=== PATIENT | female | born 2005 | race Caucasian/White ===

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

== ENCOUNTER → 2023-10-19 08:09 | Outpatient (BNVA) | payer MEDICAID, SELFPAY | PROVIDERS: PCP Family Medicine; Visit Provider Nurse Practitioner Women's Health | DX: Z34.90 Encounter for supervision of normal pregnancy, unspecified, unspecified trimester (principal) | CPT/HCPCS: 81025; 84702; 86850; 86900 ==

== ENCOUNTER → 2023-11-11 08:02 | Outpatient (BNVA) | payer MEDICAID, SELFPAY | PROVIDERS: PCP Family Medicine; Visit Provider Nurse Practitioner Women's Health | DX: Z34.90 Encounter for supervision of normal pregnancy, unspecified, unspecified trimester | CPT/HCPCS: 80307; 84315; 84439; 84443; 84481; 85025; 86592; 86762; 86803; 86850; 86900; 87086; 87340; 87806 ==

== ENCOUNTER → 2023-11-15 08:13 | Outpatient (BNVA) | payer MEDICAID, SELFPAY | PROVIDERS: PCP Family Medicine; Visit Provider Obstetrics & Gynecology | DX: Z34.90 Encounter for supervision of normal pregnancy, unspecified, unspecified trimester (principal) | CPT/HCPCS: 84315; 87491; 87591 ==

== ENCOUNTER → 2023-12-14 12:09 | Outpatient (BNVA) | payer MEDICAID, SELFPAY | PROVIDERS: PCP Family Medicine; Visit Provider Nurse Practitioner Women's Health | DX: N39.0 Urinary tract infection, site not specified (principal); Z3A.12 12 weeks gestation of pregnancy | CPT/HCPCS: 82105; 84315; 85025; 87086 ==

== ENCOUNTER → 2024-01-06 14:30 | Outpatient (BNVA) | payer MEDICAID, SELFPAY | PROVIDERS: PCP Family Medicine; Visit Provider Obstetrics & Gynecology | DX: Z36.2 Encounter for other antenatal screening follow-up (principal); Z3A.19 19 weeks gestation of pregnancy | CPT/HCPCS: 76805 ==

== ENCOUNTER → 2024-01-12 08:17 | Outpatient (BNVA) | payer MEDICAID, SELFPAY | PROVIDERS: PCP Family Medicine; Visit Provider Obstetrics & Gynecology | DX: Z53.9 Procedure and treatment not carried out, unspecified reason (principal) | CPT/HCPCS: 84315 ==

== ENCOUNTER → 2024-02-08 12:59 | Outpatient (BNVA) | payer MEDICAID, SELFPAY | PROVIDERS: PCP Family Medicine; Visit Provider Nurse Practitioner Women's Health | DX: Z36.2 Encounter for other antenatal screening follow-up (principal); Z34.90 Encounter for supervision of normal pregnancy, unspecified, unspecified trimester; Z3A.24 24 weeks gestation of pregnancy | CPT/HCPCS: 76816; 81000; 84315 ==

== ENCOUNTER → 2024-02-09 16:24 | Outpatient (BNVA) | payer MEDICAID, SELFPAY | PROVIDERS: PCP Family Medicine; Visit Provider Nurse Practitioner Women's Health | DX: N28.9 Disorder of kidney and ureter, unspecified (principal); Z3A.12 12 weeks gestation of pregnancy | CPT/HCPCS: 80053 ==

== ENCOUNTER 2024-02-11 16:48 | Outpatient (CLI) | payer OTHER, MEDICAID, SELFPAY ==
[2024-02-11 17:49] LABS: Urine Total Protein 17.4 mg/dL (0-150)
[2024-02-11 18:11] LABS: Total Volume, Urine 1000 mL
== END 2024-02-11 16:49 | disposition home or self-care (01) ==
LOC: LAB 16:55
PROVIDERS: PCP Family Medicine; Visit Provider Nurse Practitioner Women's Health
DX: N28.9 Disorder of kidney and ureter, unspecified (principal); Z3A.12 12 weeks gestation of pregnancy
CPT/HCPCS: 84156

== ENCOUNTER 2024-02-21 21:14 | Outpatient (CLI) | payer OTHER, MEDICAID, SELFPAY ==
[2024-02-21 21:14] VITALS: BMI 32.8
[2024-02-21 21:34] VITALS: TEMP 36.9
[2024-02-21 21:40] VITALS: BP 101/62; PULSE 96
[2024-02-21 21:54] VITALS: BP 104/59; PULSE 86
[2024-02-21 22:05] VITALS: BP 104/59; PULSE 86; RESP 16; TEMP 36.9
== END 2024-02-21 22:05 | disposition home or self-care (01) ==
LOC: OPOB 21:19 → OBGYN 21:19
PROVIDERS: PCP Family Medicine; Visit Provider Obstetrics & Gynecology
DX: O26.899 Other specified pregnancy related conditions, unspecified trimester (principal); Z3A.00 Weeks of gestation of pregnancy not specified
CPT/HCPCS: 99211

== ENCOUNTER → 2024-03-28 09:58 | Outpatient (BNVA) | payer OTHER, MEDICAID, SELFPAY | PROVIDERS: PCP Family Medicine; Visit Provider Obstetrics & Gynecology | DX: Z34.90 Encounter for supervision of normal pregnancy, unspecified, unspecified trimester (principal) | CPT/HCPCS: 82950; 84315; 87086 ==

== ENCOUNTER → 2024-04-13 13:53 | Outpatient (BNVA) | payer OTHER, MEDICAID, SELFPAY | PROVIDERS: PCP Family Medicine; Visit Provider Nurse Practitioner Women's Health | DX: Z34.90 Encounter for supervision of normal pregnancy, unspecified, unspecified trimester (principal) | CPT/HCPCS: 84315; 85025 ==

== ENCOUNTER → 2024-05-01 13:47 | Outpatient (BNVA) | payer SELFPAY | PROVIDERS: PCP Family Medicine; Visit Provider Obstetrics & Gynecology | DX: Z34.80 Encounter for supervision of other normal pregnancy, unspecified trimester (principal) | CPT/HCPCS: 81000; 87081 ==

== ENCOUNTER → 2024-05-09 15:02 | Outpatient (BNVA) | payer SELFPAY | PROVIDERS: PCP Family Medicine; Visit Provider Obstetrics & Gynecology | DX: Z34.80 Encounter for supervision of other normal pregnancy, unspecified trimester (principal) | CPT/HCPCS: 84315 ==

== ENCOUNTER 2024-05-12 20:18 | Outpatient (CLI) | payer SELFPAY ==
[2024-05-12 20:20] VITALS: BMI 34.8
[2024-05-12 20:27] VITALS: BP 127/80; PULSE 131
[2024-05-12 20:42] VITALS: BP 120/75; PULSE 117
[2024-05-12 20:57] VITALS: BP 121/76; PULSE 123
[2024-05-12 21:12] VITALS: BP 113/71; PULSE 117
[2024-05-12 21:27] VITALS: BP 109/69; PULSE 123
[2024-05-12 21:42] VITALS: BP 108/65; PULSE 121
== END 2024-05-12 22:00 | disposition home or self-care (01) ==
LOC: OPOB 20:19 → OBGYN 20:20
PROVIDERS: PCP Family Medicine; Visit Provider Obstetrics & Gynecology
DX: O26.899 Other specified pregnancy related conditions, unspecified trimester (principal); Z3A.00 Weeks of gestation of pregnancy not specified; R10.9 Unspecified abdominal pain; R50.9 Fever, unspecified
CPT/HCPCS: 59025; 99211

== ENCOUNTER → 2024-05-16 15:40 | Outpatient (BNVA) | payer SELFPAY | PROVIDERS: PCP Family Medicine; Visit Provider Obstetrics & Gynecology | DX: Z3A.12 12 weeks gestation of pregnancy (principal) | CPT/HCPCS: 81000 ==

== ENCOUNTER → 2024-05-23 13:03 | Outpatient (BNVA) | payer SELFPAY | PROVIDERS: PCP Family Medicine; Visit Provider Obstetrics & Gynecology | DX: Z34.83 Encounter for supervision of other normal pregnancy, third trimester (principal) | CPT/HCPCS: 84315 ==

== ENCOUNTER 2024-05-29 07:21 | Inpatient (IN) | payer MEDICAID, SELFPAY ==
[2024-05-29] VITALS (37 sets, daily range): BP systolic 104–185; BP diastolic 56–95; PULSE 66–148; RESP 17; TEMP 35.9–37.1; O2SAT 97–100; BMI 36.8
[2024-05-29 07:57] LABS: Basophils % 0.4 %; Eosinophils # 0.6 10^3/uL (0.0-0.8); Hematocrit 32.8 % (36-47); Lymphocytes # 2.1 10^3/uL (1.5-6.5); Lymphocytes % 21.5 %; Mean Corpuscular HGB Conc 33.8 g/dL (30-55); Mean Corpuscular Hemoglobin 30.8 pg (27-33); Mean Corpuscular Volume 91.1 fl (85-98); Mean Platelet Volume 11.1 fL (7.4-10.4); Monocytes # 0.8 10^3/uL (0.2-0.9); Monocytes % 7.9 %; Neutrophils # 6.23 10^3/uL (1.8-8.0); Neutrophils % 63.9 %; Nucleated Red Blood Cells % 0 %; Platelet Count 192 10^3/cmm (157-399); Red Cell Distribution Width 12.9 % (12.1-15.1); White Blood Count 9.74 10^3/uL (4.5-13.0)
--- NOTE | 2024-05-29 11:05 | P.HP_ITS ---
Providers/Chief Complaint 2 Admitting Physician: Teo Harris MD Primary EXTRUSION LINE OPERATOR: Teo Harris MD Primary Care Provider: Emily Arias MD Chief Complaint: IOL HPI EXTRUSION LINE OPERATOR History of Present Illness Enedelia Pelaez is a 18 year old female EDC May 23, 2024 At 40 w 6 d No complications Admitted for induction of labor No c/o + movements POBHx: x two Present Details : 3 Para: 2 Labs Rubella: Immune RPR: Negative GBS: Negative Medications/Allergies Home Medications Medication Instructions Recorded Confirmed Last Taken Type PNV 153-FA 400 mcg-om3 35 mg-dha 1 tab PO DAILY 06/08/22 05/23/24 02/21/24 History 25 mg-epa 5 mg-fish oil chew tablet ( Gummies) Allergies Allergy/AdvReac Type Severity Reaction Status Date / Time No Known Allergies Allergy Verified 05/23/24 11:22 PFSH EXTRUSION LINE OPERATOR 2 PFSH: Medical History Recurrent UTI No pertinent past medical history neghx: htn,dm,thyroid,dvt/pe PCP: Chanel Arias Surgical History No pertinent past surgical history Family History Unknown Adopted FAMILY HISTORY UNKNOWN Social History Smoking and tobacco/nicotine status: former use of tobacco/nicotine History History History 2 3 Term 2 0 Miscarriages/Ectopic 0 Living Children 2 Care DANIEL Calculator 2 Estimated Delivery Date Method Current WG Current Estimate 05/23/24 LMP (Certain) 40w 6d Other Estimates 05/25/24 Ultrasound #1 40w 4d Expected Delivery Route/Plan Hx of x2 without complications Specific Issues/Plans * KIDNEY DISEASE * RECURRENT UTIS: taking daily macrobid * UTI IN : Nitrates + every OB visit, taking daily macrobid * IRON DEFICIENCY ANEMIA * DEPRESSION * SHORT INTERVAL Vitals/I&O/Wt Last Vital Signs Temp 96.6 F L 05/29/24 13:44 Pulse 83 05/29/24 16:24 Resp 17 05/29/24 08:00 BP 106/63 05/29/24 16:24 O2 Del Method Room Air 05/29/24 08:00 Weight last 48 hrs Weight 235 lb Physical Exam 2 Narrative: Weight 230 lbs; 5?3? VS normal General comfortable Lungs: clear Cor: RRR FH 38 cm; cephalic Cervix: 2 cm / -3 Ext: no edema External monitor: heart tracing good variability, + accelerations Data 05/29/24 07:40 Results Labs OB ([facility]): 2 Obstetrics US 02/08/24 Blood Type O Positive 05/29/24 Antibody Screen Negative 05/29/24 Hct 32.8 % (36-47) L 05/29/24 Hgb 11.10 g/dL (12.4-14.8) L 05/29/24 Rho(D) Type Rh positive 05/29/24 Plt Count 192 10^3/cmm (157-399) 05/29/24 Hep Bs Antigen Non-reactive (Nonreactive) 11/11/23 Hepatitis C Antibody Non-reactive (Nonreactive) 11/11/23 Rubella IgG Antibody 63.1 IU/mL (0.0-10.0) H 11/11/23 RPR Nonreactive (Nonreactive) 11/11/23 HIV 1&2 Ab & HIV 1 Ag Non-reactive (Non-Reactiv) 11/11/23 TSH 0.47 uIU/mL (0.27-4.20) 11/11/23 Free T4 1.10 ng/dL (0.82-1.77) 11/11/23 C.trachomatis RNA (TMA) Not detected (NOT DETECTED) N.gonorrhoeae RNA (TMA) Not detected (NOT DETECTED) T. vaginalis Amp RNA Not detected (NOT DETECTED) 11/15/23 Chlamydia/GC Comment See note 11/15/23 Cystic Fibrosis Screen Negative 11/11/23 Glucose 1 Hr 50 gm 105 mg/dL (85-140) 03/28/24 Ser , Semi-Qnt 15790.00 mIU/mL 10/19/23 HCG, Qual Positive (Negative) H 10/19/23 Urine Opiates Screen Negative ng/mL (Negative) 11/11/23 Ur Barbiturates Screen Negative ng/mL (Negative) 11/11/23 Ur Phencyclidine Scrn Negative ng/mL (Negative) 11/11/23 Ur Amphetamines Screen Negative ng/mL (Negative) 11/11/23 U Benzodiazepines Scrn Negative ng/mL (Negative) 11/11/23 Urine Cocaine Screen Negative ng/mL (Negative) 11/11/23 U Marijuana (THC) Screen Negative ng/mL (Negative) 11/11/23 Micro Urine Specimen 03/28/24 A&P Assessment and plan (1) Encounter for induction of labor: 40 w 6 d Admit for induction of labor GBS negative Plan Cytotec 25 ug intravaginal h/o x two Attestations 2 Medical Necessity Statement*: patient at 40 w 6 d, admitted for induction of labor Coding Level of Care Code Acute Code for Chg Fwd Diagnoses Encounter for induction of labor Z34.90 Time Spent (min) 60
[2024-05-29] MEDS: miSOPROStol 100 mcg tablet 25 MCG VAGINAL (12:00)
[2024-05-29] MEDS: lactated ringers 1,000 ML 999 ML (17:54)
[2024-05-29] MEDS: ROPivacaine syringe 100 MG/50 ML SYRINGE 10 MG EPIDURAL ×2 (18:59→23:34)
[2024-05-29] MEDS: dextrose 5%-lactated ringers 1,000 ML 125 ML IV (19:04)
--- NOTE | 2024-05-29 19:07 | P.ANESASSM_ITS ---
Pre-Anesthetic Assessment Height/Weight: Height 1.7 m Weight 106.594 kg Temp Pulse Resp BP Pulse Ox O2 Del Method 96.6 F L 76 17 153/74 99 Room Air 05/29/24 13:44 05/29/24 19:03 05/29/24 08:00 05/29/24 19:03 05/29/24 18:59 05/29/24 08:00 Epidural Familial anesthetic complications: Epidural didn't work last time Social No alcohol and No tobacco Exam alert, oriented x 3, clear to auscultation bilaterally and regular rate & rhythm Metabolic Morbid Obesity Anesthetic Plan ASA status: 2 Anesthesia: Regional (specify below) Risk of > 500 ml blood loss (7ml/kg in children): Yes, adequate IV access and fluids planned Medications/Allergies Home Medications Medication Instructions Recorded Confirmed Last Taken Type PNV 153-FA 400 mcg-om3 35 mg-dha 1 tab PO DAILY 06/08/22 05/23/24 02/21/24 History 25 mg-epa 5 mg-fish oil chew tablet ( Gummies) Allergies Allergy/AdvReac Type Severity Reaction Status Date / Time No Known Allergies Allergy Verified 05/23/24 11:22 Current Medications Generic Name Dose Route Start Last Admin Trade Name Freq PRN Reason Stop Dose Admin Dextrose/Lactated Ringer's 1,000 mls @ 125 mls/hr 05/29/24 08:00 05/29/24 19:04 Dextrose 5%-Lactated Ringers IV 125 mls/hr .Q8H TESS Administration Ropivacaine 100 mg in 50 mls @ 10 mls/hr 05/29/24 18:00 05/29/24 18:59 Naropin Syringe EPIDURAL 10 mls/hr .Q5H TESS Administration PFSH Anesthesia Medical History Recurrent UTI No pertinent past medical history neghx: htn,dm,thyroid,dvt/pe PCP: Chanel Arias Surgical History No pertinent past surgical history Family History Unknown Adopted FAMILY HISTORY UNKNOWN Social History Smoking and tobacco/nicotine status: former use of tobacco/nicotine Female Reproductive History : 3 Data Anesthesia 05/29/24 07:40 Short CBC 05/29/24 Range/Units 07:40 WBC 9.74 (4.5-13.0) 10^3/uL Hgb 11.10 L (12.4-14.8) g/dL Hct 32.8 L (36-47) % MCV 91.1 (85-98) fl Plt Count 192 (157-399) 10^3/cmm Neut % (Auto) 63.9 % Neut # (Auto) 6.23 (1.8-8.0) 10^3/uL Blood Bank 05/29/24 07:40 Blood Type O Positive Rho(D) Type Rh positive Antibody Screen Negative Cardiac Studies: 2 No Data to Display
--- NOTE | 2024-05-29 19:08 | ANES.PROC ---
Anesthesia Procedures Procedure/Date: 05/29/24 Epidural: Time Out Performed: Yes Consents Signed: Procedure Consent Consent: requested by attending/covering physician, from patient, from other, risks and benefits reviewed and patient agrees to proceed Lumbar Level: L3-L4 Epidural position: sitting Epidural procedure: sterile prep of area, 1% lidocaine to numb the area, 18 g needle, negative for paresthesia passed, neg for paresthesia, test dose given, 1.5% xylocaine 1:200k epi (5), 0.2% Ropivacaine bolus ml (5), placed PCEA, no systemic response, sterile dressing applied, L.U.D. no apparent complications and 0.2% Ropiavacaine @ mls/hr (10) Additional Comments: DASHA at 5 cm, threaded to 11 cm, patient reported decreased pain of and satisfaction with subsequent 2 contractions
--- NOTE | 2024-05-29 20:35 | PM.DELIVERY ---
Delivery Note: Date of delivery: May 29, 2024 Pre-delivery diagnoses: 40 w 6 d induction of labor Post-delivery diagnoses: 40 w 6 d induction of labor vaginal delivery Procedure: induction of labor vaginal delivery Op report anesthesia: Epidural Delivering Physician: Teo Harris MD Estimated blood loss (mL): 300 Findings: , vigorous male infant cord gases and blood obtained normal placenta and cord no episiotomy / lacerations EBL: 300 cc no complications Pre-Delivery Course: normal course Delivery: vaginal Post-Delivery Status: good History History History 3 Term 2 0 Miscarriages/Ectopic 0 Living Children 2 A&P Assessment and plan (1) Vaginal delivery: care PDMP PDMP Reviewed: Not Reviewed Coding Level of Care Code Acute Code for Chg Fwd Diagnoses Vaginal delivery O80 Time Spent (min) 60
[2024-05-30] VITALS (16 sets, daily range): BP systolic 103–197; BP diastolic 63–123; PULSE 68–121; RESP 15–16; TEMP 36.6–36.8; O2SAT 97–98
[2024-05-30] MEDS: oxytocin 30 UNIT/500 ML BAG 600 UNIT IV (00:19)
--- NOTE | 2024-05-30 08:00 | ANE.PACU2 ---
Inpatient post-anesthesia follow up: Airway intact: Yes Vital signs: Temperature 98.3 F Pulse Rate 70 Respiratory Rate 16 Blood Pressure 110/62 Pulse Oximetry 98 Oxygen Delivery Me thod Room Air Oxygen Flow Rate Fraction of Inspir ed Oxygen Hydration adequate: Yes Nausea and vomiting: Yes Pain level: 1 Mental status: Baseline Epidural Start/End: Epidural Start Date: 05/29/24 Epidural Start Time: 18:44 Epidural End Date: 05/30/24 Epidural End Time: 00:44
[2024-05-30] MEDS: docusate sodium 100 mg Capsule PO ×2 (08:24→20:32)
[2024-05-30] MEDS: ibuprofen 800 mg tablet PO ×3 (08:24→20:32)
[2024-05-30] MEDS: PRENATAL VIT NO.130/IRON/FOLIC 1 EACH TABLET PO (08:25)
[2024-05-30 13:06] LABS: Hematocrit 32.9 % (36-47); Mean Corpuscular HGB Conc 33.1 g/dL (30-55); Mean Corpuscular Hemoglobin 30.9 pg (27-33); Mean Corpuscular Volume 93.2 fl (85-98); Mean Platelet Volume 11.4 fL (7.4-10.4); Platelet Count 171 10^3/cmm (157-399); Red Blood Count 3.53 10^6/uL (3.85-5.65); Red Cell Distribution Width 12.9 % (12.1-15.1); White Blood Count 11.24 10^3/uL (4.5-13.0)
--- NOTE | 2024-05-30 13:15 | PM.OBGYPN ---
[employer] Subjective Subjective: Interval history: no c/o no headaches, dizziness, nausea, abdominal pain, bleeding normal lochia eating, voiding, ambulating well Labor: Station: +2 Amniotic Membrane Status: Ruptured Monitor Mode: Palpation Contraction Pattern: Irregular Vitals/I&O/Wt Last Vital Signs Temp 98.3 F 05/31/24 14:00 Pulse 70 05/31/24 14:00 Resp 16 05/31/24 14:00 BP 110/62 05/31/24 14:00 Pulse Ox 98 05/31/24 14:00 O2 Del Method Room Air 05/31/24 14:00 Physical Exam Narrative: afebrile, VS normal comfortable, awake, alert Abd: soft, nontender. fundus firm Ext: no edema; nontender Urinary Catheter Management: Carter: Cath Placed During This Visit: yes, but has since been removed by the nurse Reason for Continuing Indwelling Catheter: Decision to DC Catheter Urinary Catheter Date of Insertion: 05/29/24 Urinary Catheter Time of Insertion: 19:20 Date Urinary Catheter Removed: 05/30/24 Time Urinary Catheter Discontinued: 00:12 Data 05/30/24 12:30 A&P Assessment and plan (1) Vaginal delivery: PPD #1 doing well normal course continue care PDMP PDMP Reviewed: Not Reviewed Attestations Medical Necessity Statement*: patient s/p vaginal delivery, for care Coding Level of Care Code Acute Code for Chg Fwd Diagnoses Vaginal delivery O80
[2024-05-31 04:02] VITALS: BP 112/64; PULSE 76; RESP 16; TEMP 36.5; O2SAT 98
[2024-05-31] MEDS: HYDROcodone-acetaminophen 5-325 mg Tablet PO ×2 (04:18→10:20)
[2024-05-31] MEDS: ibuprofen 800 mg tablet PO (10:39)
[2024-05-31] MEDS: docusate sodium 100 mg Capsule PO (10:39)
[2024-05-31] MEDS: PRENATAL VIT NO.130/IRON/FOLIC 1 EACH TABLET PO (10:39)
[2024-05-31 11:20] VITALS: BP 105/67; PULSE 71; RESP 16; TEMP 36.7
[2024-05-31 14:00] VITALS: BP 110/62; PULSE 70; RESP 16; TEMP 36.8; O2SAT 98
--- NOTE | 2024-05-31 14:05 | PM.OBGYDC ---
Discharge Providers INTERNATIONAL REPRESENTATIVE Date of Admission: 05/29/24 07:21 Date of Discharge: 05/31/24 Attending Provider at Admission: Teo Harris MD Attending Provider at Discharge: Teo Harris MD Consults: none Primary INTERNATIONAL REPRESENTATIVE: Teo Harris MD Primary Care Provider: Emily Arias MD Diagnoses at Discharge Discharge Diagnosis (1) Vaginal delivery: Details from hospital stay: 18 y.o. at 40 w 6 d admitted for induction of labor patient progressed to complete dilatation fetus was reassuring throughout She delivered vaginally a vigorous male without any complications there were no episiotomy or lacerations patient did well and was discharged to home on the second day Status: Acute Reason for Visit Reason for Visit: IOL Brief History: 18 y.o. at 40 w 6 d admitted for induction of labor Hospital Course Hospital Course 18 y.o. at 40 w 6 d admitted for induction of labor patient progressed to complete dilatation fetus was reassuring throughout She delivered vaginally a vigorous male without any complications there were no episiotomy or lacerations patient did well and was discharged to home on the second day Information Peripartum Data: Infant Delivery Method: Vaginal Laceration description: None Episiotomy description: None complications: none Physical Exam Narrative: afebrile, VS normal comfortable, awake, alert Lungs: clear Cor: RRR Abd: soft, nontender. fundus firm Ext: no edema; nontender Urinary Catheter Management: Carter: Cath Placed During This Visit: yes, but has since been removed by the nurse Reason for Continuing Indwelling Catheter: Decision to DC Catheter Urinary Catheter Date of Insertion: 05/29/24 Urinary Catheter Time of Insertion: 19:20 Date Urinary Catheter Removed: 05/30/24 Time Urinary Catheter Discontinued: 00:12 History History History 3 Term 3 0 Miscarriages/Ectopic 0 Living Children 3 Discharge Data Studies Completed and Pending Laboratory Results WBC 11.24 10^3/uL (4.5-13.0) 05/30/24 12:30 RBC 3.53 10^6/uL (3.85-5.65) L 05/30/24 12:30 Hgb 10.90 g/dL (12.4-14.8) L 05/30/24 12:30 Hct 32.9 % (36-47) L 05/30/24 12:30 MCV 93.2 fl (85-98) 05/30/24 12:30 MCH 30.9 pg (27-33) 05/30/24 12:30 MCHC 33.1 g/dL (30-55) 05/30/24 12:30 RDW 12.9 % (12.1-15.1) 05/30/24 12:30 Plt Count 171 10^3/cmm (157-399) 05/30/24 12:30 MPV 11.4 fL (7.4-10.4) H 05/30/24 12:30 Neut % (Auto) 63.9 % 05/29/24 07:40 Lymph % (Auto) 21.5 % 05/29/24 07:40 [place] % (Auto) 7.9 % 05/29/24 07:40 Eos % (Auto) 6.0 % 05/29/24 07:40 Baso % (Auto) 0.4 % 05/29/24 07:40 Neut # (Auto) 6.23 10^3/uL (1.8-8.0) 05/29/24 07:40 Lymph # (Auto) 2.1 10^3/uL (1.5-6.5) 05/29/24 07:40 [place] # (Auto) 0.8 10^3/uL (0.2-0.9) 05/29/24 07:40 Eos # (Auto) 0.6 10^3/uL (0.0-0.8) 05/29/24 07:40 Baso # (Auto) 0.0 10^3/uL (0.0-0.1) 05/29/24 07:40 Nucleated RBC % (auto) 0 % 05/29/24 07:40 Nucleated RBCs # 0.0 /100WBC 05/29/24 07:40 Blood Type O Positive 05/29/24 07:40 Rho(D) Type Rh positive 05/29/24 07:40 Antibody Screen Negative 05/29/24 07:40 Procedures Performed induction of labor vaginal delivery Vitals Last Vital Signs Temp 98.3 F 05/31/24 14:00 Pulse 70 05/31/24 14:00 Resp 16 05/31/24 14:00 BP 110/62 05/31/24 14:00 Pulse Ox 98 05/31/24 14:00 O2 Del Method Room Air 05/31/24 14:00 Results Labs OB ([facility]): Obstetrics US 02/08/24 Blood Type O Positive 05/29/24 Antibody Screen Negative 05/29/24 Hct, (36-47) 32.9 % L 05/30/24 Hgb, (12.4-14.8) 10.90 g/dL L 05/30/24 Rho(D) Type Rh positive 05/29/24 Plt Count, (157-399) 171 10^3/cmm 05/30/24 Hep Bs Antigen, (Nonreactive) Non-reactive 11/11/23 Hepatitis C Antibody, (Nonreactive) Non-reactive 11/11/23 Rubella IgG Antibody, (0.0-10.0) 63.1 IU/mL H 11/11/23 RPR, (Nonreactive) Nonreactive 11/11/23 HIV 1&2 Ab & HIV 1 Ag, (Non-Reactiv) Non-reactive 11/11/23 TSH, (0.27-4.20) 0.47 uIU/mL 11/11/23 Free T4, (0.82-1.77) 1.10 ng/dL 11/11/23 C.trachomatis RNA (TMA), (NOT DETECTED) Not detected 11/15/23 N.gonorrhoeae RNA (TMA), (NOT DETECTED) Not detected 11/15/23 T. vaginalis Amp RNA, (NOT DETECTED) Not detected 11/15/23 Chlamydia/GC Comment See note 11/15/23 Cystic Fibrosis Screen Negative 11/11/23 Glucose 1 Hr 50 gm, (85-140) 105 mg/dL 03/28/24 Ser , Semi-Qnt 73039.00 mIU/mL 10/19/23 HCG, Qual, (Negative) Positive H 10/19/23 Urine Opiates Screen, (Negative) Negative ng/mL 11/11/23 Ur Barbiturates Screen, (Negative) Negative ng/mL 11/11/23 Ur Phencyclidine Scrn, (Negative) Negative ng/mL 11/11/23 Ur Amphetamines Screen, (Negative) Negative ng/mL 11/11/23 U Benzodiazepines Scrn, (Negative) Negative ng/mL 11/11/23 Urine Cocaine Screen, (Negative) Negative ng/mL 11/11/23 U Marijuana (THC) Screen, (Negative) Negative ng/mL 11/11/23 Micro Urine Specimen 03/28/24 Discharge Plan Discharge Patient Disposition: Home Condition: Stable Prescriptions: No Action amoxicillin-pot clavulanate 875-125 mg tablet 1 tab PO BID 5 Days Qty: 10 0RF Rx Instructions: take one tab twice daily metronidazole 500 mg tablet 500 mg PO BID 7 Days Qty: 14 0RF Discharge Orders: Discharge Order (Routine); Ordered 05/31/24 Ordered By: Teo Harris Referrals: Cate Campos NP [Nurse Practitioner, INTERNATIONAL REPRESENTATIVE] - 07/10/24 1:30 pm Discharge Diet: Usual diet Discharge Activity: Increase activity as tolerated Patient Instructions: Depression (DC), Opioid Safety (DC), Preeclampsia and Eclampsia After Delivery (GEN), Hemorrhage (DC), OB Discharge Report, OB Food/Drug Interaction Guide, Opioid Safety, OB Home Care, OB Vaginal Deliveries - [facility], Abnormal Bleeding Discharge Attestations INTERNATIONAL REPRESENTATIVE Time Spent in Discharge Care*: less than 30 min Coding Level of Care Code Acute Code for Chg Fwd Diagnoses Vaginal delivery O80
== END 2024-05-31 14:10 | disposition home or self-care (01) | DRG 805 ==
LOC: OPOB 07:21 → OBGYN 07:21
PROVIDERS: Admitting Provider Obstetrics & Gynecology; PCP Family Medicine; Visit Provider Obstetrics & Gynecology
DX: O48.0 Post-term pregnancy (principal); O75.3 Other infection during labor; Z37.0 Single live birth; N39.0 Urinary tract infection, site not specified; Z3A.40 40 weeks gestation of pregnancy; Z87.891 Personal history of nicotine dependence; O99.02 Anemia complicating childbirth; O99.344 Other mental disorders complicating childbirth; D50.9 Iron deficiency anemia, unspecified; F32.A Depression, unspecified
CPT/HCPCS: 36415; 51702; 59025; 59409; 85025; 85027; 86850; 86900; J2590; J2795; J7120; J7121; J9999

== ENCOUNTER → 2025-03-14 15:00 | Outpatient (BNVA) | payer MEDICAID, SELFPAY | PROVIDERS: PCP Family Medicine; Visit Provider Nurse Practitioner Women's Health | DX: Z32.01 Encounter for pregnancy test, result positive (principal); N91.2 Amenorrhea, unspecified | CPT/HCPCS: 81025; 86850; 86900 ==

== ENCOUNTER → 2025-04-09 13:50 | Outpatient (BNVA) | payer MEDICAID, SELFPAY | PROVIDERS: PCP Family Medicine; Visit Provider Nurse Practitioner Women's Health | DX: Z34.91 Encounter for supervision of normal pregnancy, unspecified, first trimester (principal); Z3A.10 10 weeks gestation of pregnancy | CPT/HCPCS: 80307; 82950; 84315; 85025; 86592; 86762; 86803; 86850; 86900; 87086; 87340; 87491; 87591; 87661; 87806 ==